=== PATIENT | female | born 1995 | race African-American/Black ===

== ENCOUNTER 2023-06-24 04:38 | Emergency (ER) | payer OTHER, MEDICAID, SELFPAY ==
[2023-06-24 04:45] VITALS: BP 143/90; PULSE 104; RESP 20; TEMP 37.1; O2SAT 99; BMI 36.1
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
== END 2023-06-24 06:40 | disposition home or self-care (01) ==
PROVIDERS: Emergency Provider Emergency Medicine; PCP Nurse Practitioner Occupational Health
DX: S71.102A Unspecified open wound, left thigh, initial encounter (principal); T85.9XXA Unspecified complication of internal prosthetic device, implant and graft, initial encounter; V89.2XXA Person injured in unspecified motor-vehicle accident, traffic, initial encounter
CPT/HCPCS: 99281; 99282